=== PATIENT | female | born 1940 | race Caucasian/White ===

== ENCOUNTER → 2018-10-07 10:10 | Outpatient (CLI) | payer MEDICARE, OTHER, SELFPAY ==
--- NOTE | 2018-10-07 | DI.RAD.S_ITS ---
PROCEDURE: XR HIP W PEL IF DONE LT 2V INDICATIONS: PAIN IN LEFT HIP TECHNIQUE: AP pelvis with lateral view(s) of the left hip(s). COMPARISON: [facility], [place], ABDOMEN/PELVIS WITH CONTRAST, 07/16/2011, 11:51. FINDINGS: Bones: No fractures or dislocations. Pelvic ring appears intact. No suspicious bony lesions. There is moderate superior joint space narrowing seen of the left hip, with associated remodeling changes with subchondral sclerosis and osteophyte formation. Milder degenerative changes are seen of the contralateral right hip. Age-appropriate lower lumbar spine degenerative changes are noted. Soft tissues: The visualized bowel gas pattern is normal. No suspicious soft tissue calcifications. IMPRESSION: Moderate left hip degenerative change. Dictated by: Rafita Irwin M.D. on 10/07/2018 at 10:17 Approved by: Rafita Irwin M.D. on 10/07/2018 at 10:18
== END ==
PROVIDERS: Family Provider Internal Medicine; PCP Internal Medicine; Visit Provider Internal Medicine
DX: M25.552 Pain in left hip (principal); M16.12 Unilateral primary osteoarthritis, left hip
CPT/HCPCS: 73502

== ENCOUNTER → 2019-04-29 12:03 | Outpatient (CLI) | payer MEDICARE, OTHER, SELFPAY ==
[2019-04-29 12:47] LABS: Bacteria Urine None Seen; WBC Urine None Seen (0-5/HPF)
[2019-04-29 13:44] LABS: Hematocrit 39.9 % (36-46); Hemoglobin 13.1 g/dL (12.0-16.0); Mean Corpuscular HGB Conc 32.9 % (30-36); Mean Corpuscular Hemoglobin 30.2 PG (26-34); Mean Corpuscular Volume 91.6 fL (80-100); Platelet Count 329 X10^3/uL (150-400); Red Blood Cell Count 4.35 X10^6/uL (4.0-5.2); Red Cell Distribution Width 13.2 % (11.6-14.8); White Blood Cell Count 10.7 X10^3/uL (4.5-11.0)
[2019-04-29 14:08] LABS: BUN Creatinine Ratio 38.3 (6-22); Blood Urea Nitrogen 23 mg/dL (7-17); Calcium 10.4 mg/dL (8.4-10.2); Carbon Dioxide 27 mmol/L (22-32); Chloride 103 mmol/L (98-107); Estimated Glomerular Filt Rate > 60.0 mL/min (>60); Glucose 97 mg/dL (80-110); HEMOLYSIS < 15 (0-50); Potassium 3.8 mmol/L (3.4-5.1); Sodium 139 mmol/L (137-145)
[2019-04-29 14:16] LABS: Appearance Urine UA CLEAR; Bilirubin Urine UA NEGATIVE (NEGATIVE); Color Urine UA YELLOW; Glucose Urine UA NEGATIVE (Negative); Ketones Urine UA NEGATIVE (NEGATIVE); Leukocyte Esterase Urine UA NEGATIVE (NEGATIVE); Nitrite Urine UA NEGATIVE (Negative); Occult Blood Urine UA 1+ (Negative); Protein Urine UA NEGATIVE (Negative); Specific Gravity Urine UA <=1.005 (1.000-1.035); Urobilinogen Urine UA 0.2 E.U./dL (0.2)
[2019-04-29 14:32] LABS: RBC Urine 1-5/HPF (0-5/HPF)
[2019-04-29 14:45] LABS: Hemoglobin A1C% w Est Avg Glu 5.7 % (4.0-6.0)
== END ==
PROVIDERS: PCP Internal Medicine; Visit Provider Orthopaedic Surgery
DX: Z01.818 Encounter for other preprocedural examination (principal); N39.0 Urinary tract infection, site not specified; R73.9 Hyperglycemia, unspecified
CPT/HCPCS: 36415; 80048; 81001; 83036; 85027; 93005

== ENCOUNTER 2019-05-23 09:56 | Inpatient (IN) | payer MEDICARE, OTHER, SELFPAY ==
[2019-05-09 09:54] VITALS: BMI 22.0
[2019-05-23] VITALS (11 sets, daily range): BP systolic 105–140; BP diastolic 50–91; PULSE 63–76; RESP 15–18; TEMP 36.2–36.6; O2SAT 95–100; BMI 21.1
--- NOTE | 2019-05-23 | DI.RAD.S_ITS ---
PROCEDURE: XR HIP W PEL IF DONE LT 2V INDICATIONS: ANTERIOR HIP TECHNIQUE: 2 intraoperative fluoroscopic view(s) of the hip acquired. COMPARISON: [facility], [place], XR HIP W PEL IF DONE LT 2V, 10/07/2018, 10:20. FINDINGS: Bones: Patient is status post left hip arthroplasty, with hardware components in expected positions. The hip joint appears congruent. The visualized bony structures appear intact. Soft tissues: Overlying postoperative changes are noted. No suspicious soft tissue densities. IMPRESSION: Intraoperative fluoroscopic images shows post left total hip arthroplasty changes with anatomic left hip alignment. Dictated by: Torrey Pulido M.D. on 05/23/2019 at 16:11 Approved by: Torrey Pulido M.D. on 05/23/2019 at 16:12
--- NOTE | 2019-05-23 06:00 | DI.RAD.S_ITS ---
PROCEDURE: XR HIP W PEL IF DONE LT 2V INDICATIONS: LEFT TOTAL HIP TECHNIQUE: AP pelvis and lateral view of the left hip acquired. COMPARISON: [facility], [place], XR HIP W PEL IF DONE LT 2V, 05/23/2019, 14:30. FINDINGS: Bones: Patient is status post left hip arthroplasty, with hardware components in expected positions. The hip joint appears congruent. The visualized bony structures appear intact. Soft tissues: Overlying postoperative changes are noted. No suspicious soft tissue densities. IMPRESSION: Left hip disease is seen anatomic alignment. Dictated by: Yenny Peterson M.D. on 05/23/2019 at 17:16 Approved by: Yenny Peterson M.D. on 05/23/2019 at 17:17
[2019-05-23] MEDS: PREGABALIN 75 MG CAPSULE PO (10:41)
[2019-05-23] MEDS: ACETAMINOPHEN 325 MG TABLET 975 MG PO ×2 (10:41→20:22)
[2019-05-23] MEDS: LACTATED RINGERS 1,000 ML 42 ML IV ×2 (10:41→15:37)
[2019-05-23] MEDS: CELECOXIB 200 MG CAPSULE PO (10:41)
[2019-05-23] MEDS: VANCOMYCIN 1,000 MG/200 ML PIGGYBACK 200 MG IV (10:59)
--- NOTE | 2019-05-23 11:04 | SUR.PREOP ---
Discussed pt's status with PharmacistAllie. Verified ok to give 1G Vanco and 2G Ancef.
--- NOTE | 2019-05-23 11:46 | PM.PREOP ---
Pre-operative Note Interval Note History & Physical reviewed/Exam performed by Physician: Yes Changes to H&P: No
--- NOTE | 2019-05-23 11:47 | PM.OP.1 ---
Operative Date/Time/Diagnoses Date of procedure: 05/23/19 Time of procedure: 11:59 Pre-op diagnosis: left total hip anterior approach Post-op diagnosis: same Procedure & Clinicians Procedure: Left total hip arthroplasty anterior approach Same procedure as scheduled: Yes Indications: The patient has had progressively worsening left hip pain with radiographic changes consistent with arthritis. Non-operative management has failed and the patient has requested total hip replacement. The risks, benefits and alternatives to surgery were discussed with the patient prior to proceeding. Risks discussed included, but were not limited to, failure to relieve pain, leg length discrepancy, dislocation, stiffness, infection, nerve damage, deep venous thrombosis, pulmonary embolism, stroke, coma, heart attack, permanent paralysis and , as well as the potential need for eventual revision of the prosthetic. Surgeon: Norma Barry Paediatric Thoracic Physician: Duke Sousa Anesthesia Type: General and Spinal Operative Notes Findings: Severe left hip osteoarthritis, adequate stability, soft bone Closure Type: primary Specimen(s): none sent Prosthetic devices, grafts, tissues, transplants, or devices: [employer] R3 48 cup, size 5 standard offset anthology, one 20mm screw, -3 by 32 femoral head Estimated Blood Loss (mL): 250 Blood products transfused: none Procedure in detail: The patient was brought to the operating room. Patient was carefully positioned in the supine position. Time-out was performed and antibiotics were given. Anesthesia was induced. She was positioned in the on the table in order to allow hyperextension of the hip. The left lower extremity was prepped and draped in a standard sterile fashion. An anterior left hip incision was made 1 fingerbreadth lateral to the anterior superior iliac spine and extended distally towards the greater trochanter. Dissection was carried out through skin and subcutaneous tissues. The skin and subcutaneous tissues were carefully injected with Lidocaine with epi. Superficial hemostasis was achieved. The fascia over the tensor fascia bharti was defined and incised with a knife. Two Allis clamps were used to grasp the fascia. Tensor fascia bharti was retracted laterally. A gelpi retractor was placed. Dissection was carried out down along the neck. The circumflex vessels were carefully identified and cauterized with the Aqua Mantis. There was good visualization of the femoral neck. A Cobra was placed superior to the neck and the gluteus fibers were carefully stripped from that superior aspect of the capsule. A 2nd retractor was placed along the inferior aspect of the neck. The rectus insertion along the capsule was partially released. A 3rd retractor that was then gently placed over the rim of the acetabulum under the rectus. Capsule was carefully incised and released from the intertrochanteric line circumferentially superior to the mid sagittal line and inferiorly to the mid sagittal line until the lesser trochanter was palpable. A tag stitch was placed both in the superior and inferior limb of the capsular insertion. There was some moderate degenerative tearing of the hip abductors. Along the acetabulum capsule was also released up to the mid sagittal 12:00 position. A portion of the labrum was resected. A saw was used to perform an osteotomy at the level of the intertrochanteric line and the junction of the superior femoral neck leaving approximately 1 finger breath of residual inferior neck above the lesser trochanter. A 2nd cut was made along the femoral neck at the base of the head and a napkin ring of neck was removed. Corkscrew was placed in the femoral head and the head was removed without difficulty. Retractors were then repositioned around the acetabulum. Residual labrum was resected and additional osteophytes were removed. A reamer that was 4 mm below the templated size was placed by hand in the acetabulum and it was reamed to centralize the acetabulum. It was then reamed up to 2 under the templated size and fluoroscopy was brought in to confirm the position of the reaming and depth of reaming. I reamed 1 under the anticipated size and touched the rim with line to line reaming. A trial cup was placed and noted that it was appropriately sized and fluoroscopy confirmed position and depth. The component was open and inserted without difficulty fluoroscopic imaging was used to confirm that the cup had been adequately seated and was well positioned. She had a somewhat soft acetabulum, I bone grafted the cyst in the dome and further fixed the cup with a single 20mm screw. Neutral poly liner was placed. The cup was tested and noted to be stable. Attention was then directed to the femur. The femur was gently hyperextended additional capsular release was performed as needed in order to allow adequate visualization of the proximal femur with elevation of the femur. Patient was placed in a hyperextended slightly abducted position with maximum external rotation. Box osteotome was used to check for any residual neck as well as sclerotic bone along the trochanter. [place] pepper was placed in the femur. Additional broaching was performed. Canal finder was used to determine the alignment of the canal and position. Size 1 broach was placed. The canal was then appropriately broached up to the templated size as long as there was adequate stability of the broach and serial advancement of the broach without excessive impingement. Specific attention was directed at avoiding varus attempting to direct the distal aspect of the broach more anteriorly and avoiding excessive anteversion. Trial reduction showed acceptable range of motion, good stability, no posterior impingement, amish of leg length and appropriate lateral shuck. I also hyperflexed the hip and checked that there was no impingement anteriorly and there was good stability with flexion, abduction and internal rotation. Marcaine and Exparel were injected. The stem was placed without difficulty. Repeat trial reduction and x-ray showed acceptable overall position, length, and no evidence of the femoral fracture. Final head was placed. Wound was meticulously irrigated with normal saline. The hip was reduced and additional Exparel and Marcaine were injected. The capsule was closed with interrupted nonabsorbable sutures. The fascia of the tensor was closed with interrupted and running Vicryl. No drain was placed. Any tensor fascia bharti muscle that appeared to be contused or injured which was a minimal amount was carefully resected. Capsule around the tensor was injected with Exparel and Marcaine. The skin was closed with barbed stitches for the subcutaneous tissue and skin. We also used surgical glue. The wound was dressed sterilely. Brief Betadine soak was also used and was meticulously irrigated with normal saline. Patient was transferred to recovery room in satisfactory condition. Complications: none Post-operative Condition: stable Disposition: Acute Care Plan for aftercare: The patient will be maintained on a standard total hip replacement protocol with weight bearing as tolerated and anterior hip precautions. The patient will receive Aspirin and sequential compression devices for DVT prophylaxis. The patient will be discharged home when safe for the home environment.
[2019-05-23] MEDS: CEFAZOLIN 2 GM/100 ML FROZ.PIGGY IV ×2 (12:30→20:18)
--- NOTE | 2019-05-23 13:09 | SUR.OPER ---
Supine, head on pillow, torso on Tatum table. Gel roll under operative hip. Right arm secured on arm board <90 degrees abduction, left arm across chest and taped over the foam to the table. Both feet placed and secured in boots by a surgeon and PA.
[2019-05-23] MEDS: BUPIVACAINE 0.25% W/ EPI 30 ML VIAL 60 ML INJ (13:16)
[2019-05-23] MEDS: TRANEXAMIC ACID 1,000 MG VIAL 1000 MG INJ ×2 (13:16→14:22)
[2019-05-23] MEDS: BUPIVACAINE LIPOSOME 266 MG/20 ML VIAL INJ (13:16)
[2019-05-23] MEDS: SODIUM CHLORIDE IRRIG SOLUTION 250 ML, POVIDONE-IODINE SPONGE STICKS 1 APPLIC IRR (13:18)
--- NOTE | 2019-05-23 18:08 | PC.NURSE ---
Post-op Notes: Patient brought to rm 211 from PACU via hospital bed. Deyanira is awake, Ox3, conversive with staff. Denies pain, does report numbness to bilateral legs, able to wiggle toes and move feet but unable to feel nurse hand on foot or leg. Aquacel drsg to left anterior hip is CDI. Pedal pulses present, wearing bilateral SCDs. VS are stable, RA oxygen high 90's with continuous pulse ox in place. Tolerating liquids, diet advanced to general. Visiting with family at bedside. Fall precautions in place, pt instructed to call nurse for any needs/concerns, oriented to nurse call button.
[2019-05-23] MEDS: LACTATED RINGERS 1,000 ML 125 ML IV ×2 (20:14→22:15)
[2019-05-23] MEDS: ASPIRIN EC 81 MG TABLET PO (20:18)
[2019-05-23] MEDS: IBUPROFEN 600 MG TABLET PO (20:18)
[2019-05-23] MEDS: DOCUSATE 100 MG CAPSULE PO (20:19)
[2019-05-23] MEDS: BRIMONIDINE/TIMOLOL 0.2%/0.5% OPHTH 5 ML 1 DROPS EYE-BOTH (20:21)
[2019-05-23] MEDS: ATORVASTATIN 10 MG TABLET PO (20:21)
[2019-05-24 00:35] VITALS: BP 92/58; PULSE 66; RESP 15; TEMP 36.4; O2SAT 96
[2019-05-24] MEDS: CEFAZOLIN 2 GM/100 ML FROZ.PIGGY IV (04:09)
[2019-05-24 05:39] LABS: Hematocrit 30.8 % (36-46); Hemoglobin 10.3 g/dL (12.0-16.0)
[2019-05-24 07:58] VITALS: BP 99/69; PULSE 56; RESP 14; TEMP 37; O2SAT 100
[2019-05-24] MEDS: ACETAMINOPHEN 325 MG TABLET 975 MG PO (08:30)
[2019-05-24] MEDS: CHOLECALCIFEROL (VITAMIN D3) 1,000 UNIT TABLET 2000 UNIT PO (08:31)
[2019-05-24] MEDS: MULTIVITAMIN 1 TABLET 1 TAB PO (08:31)
[2019-05-24] MEDS: IBUPROFEN 600 MG TABLET PO (08:31)
[2019-05-24] MEDS: ASPIRIN EC 81 MG TABLET PO (08:31)
--- NOTE | 2019-05-24 08:41 | CM.DANOTE ---
Addendum entered by Angi Cook LPN 05/24/19 11:32: Pt did leave for home today as per plan Addendum entered by Angi Cook LPN 05/24/19 10:13: Pt did very well with PT and for a home setting. Daughter Zari will stay with pt for at least 6 weeks. P: home when stable for same.. will follow prn. Original Note: Discharge Planning/Care Management DCP: assessment: case received, EMR reviewed and met with pt. Introduced self and role. Pt is a 78 year old female who admitted yesterday for a planned L TERRELL. Surgeon: Dr. Fransico Barry Payer: Medicare and [employer]. PCP: Marlen Evans Pt was just starting her session with PT Edgardo. She confirms her daughter Zari who is staying in room with her (currently out for breakfast) will be assisting her in her recovery when she leaves the hospital. P: will be checking in as POC unfolds to assist with any d/c needs that may arise. Anticipate Zari will be involved in caregiver training sessions with PT and pt. Advanced directive, confirm from FAMILY Start: 05/23/19 17:02 Freq: Q24H Status: Active Protocol: Document 05/23/19 17:02 KMD (Rec: 05/23/19 17:05 KMD [id number]) Advance Directive, confirm on record Time 17:05 Person contacted Patient and daughter Copy received No CM Discharge Assessment Start: 05/24/19 08:40 Freq: Status: Active Protocol: Document 05/24/19 08:40 ITV (Rec: 05/24/19 08:41 ITV [id number]) Discharge Planning Assessment Advance Directives? Yes Advance Directives on File No History Provided By Patient,Medical Record Prior Living Arrangements House Household Members none Is patient alert and oriented? Yes Whiteboard Updated in Patient Room with Yes name and ext. # of Certified Orthotist Practice Manager Review Status In Process Pre-Anesthesia Assessment Start: 05/09/19 09:54 Freq: Status: Active Protocol: Document 05/09/19 09:54 CAB (Rec: 05/09/19 11:04 CAB [id number]) Pre-Anesthesia Assessment PAC Comment Reviewed pre-op EKG w/2017 EKG , NM stress 2017 w/Dr. Ramsay. Pt denies any current CP, SOB, lightheadedness, dizziness. She is active and able to exercise without any symptoms other than pain r/t hip Patient Information Reviewed Via Phone Assessment Assessment Completed With Patient Diagnostic Results BMP/CMP,CBC,EKG,Urinalysis Comment Labs/EKG @ 04/29/19. Prior EKG scanned in. Outside UA scanned in Primary Care Provider Marlen Evans Seen Specialist in Last 12 Months Yes Specialist Seen Field Consultant,Orthopedist Comment PCP visit 02/07/19 scanned to record Primary Language [place] Tortilla Maker Required No Height 149.86 cm Weight 49.442 kg Body Mass Index (BMI) 22.0 Hearing Ability Normal Visual Assist Glasses,Magnifying Glass Dentition Type Teeth, Natural Present Barriers to Learning None Hx Anesthesia Reactions No Hx Family Anesthesia Reaction No Hx Malignant Hyperthermia No Hx Blood Transfusions No Anesthesia Review Requested No alcohol intake never Smoking Status Never smoker Substance Use Type does not use Pain Present Pain Reported Musculoskeletal Symptoms Abnormal Gait,Difficulty Walking,Joint Pain,Limited Range of Motion History of Falling (Recent or History of No ) Patient is completely paralyzed or No completely immobile Prosthesis or Orthotic Device Cane Mental Status Oriented to own ability Is patient on oxygen? No Does patient have PETTY/SOB No Hx Sleep Apnea No Currently Taking a Beta Shea No Can You Climb a Flight of Stairs Without Yes SOB Hx Chest Pain Yes: Work-up [facility] 2018 Hx SOB No Hx Syncope or Dizziness No Anti-Coagulant Therapy No Has a Seasoner Yes: Work-up [facility] 2018 Cardiac Testing Yes: NM stress 09/23/17 @ [facility] Hx Pacemaker/ICD No Pacemaker Rep Required? No Cardiac Clearance Received Not Applicable Comment Cardiac records scanned to chart Diet Type At Home Regular dysphagia No Bladder Pattern Incontinent Urinary Catheter Present No Hx Urinary Self Catheterization No Diabetes No HgbA1C 5.7 Date 04/29/19 Patient No Lactating No Hx Drug Resistant Organism No Presence of External or Internal Medical No Devices Have you traveled outside the [place] in the last 30 days? Marital Status / Lives With none Prior Living Arrangements House Number of Floors (Floors) One Floor Support System Child/Children Patient Discharge Plan Description Return Home Comment Daughter flying in to assist w /care @ [place]. Advised overnight length of stay Feels Safe in Current Environment Yes Been Physically Hurt or Threatened By a No Person in Current Environment Do you have thoughts of harming yourself None or others? Are you currently considering suicide? No Do you have a plan to hurt yourself or No Plan others? Do You Have Any Spiritual Beliefs That No May Affect Your HC Choices? Do You Have Any Cultural Practices That No May Affect Your HC Choices? Who Can We Speak to About Patient's Care Family, friends Identifying Code for Release of Patient Declines to issue Information Health Care Proxy/Next of Kin Zari (daughter) Health Care Proxy Emergency Contact Name Zari (daughter) Emergency Contact Advance Directives? Yes Advance Directives on File No Requested Patient Bring Advanced Yes Directives DOS PAC Instructions Do not shave/clip surgical site,Durable medical equipment ,Medications to take/avoid, Nasal antibiotic,No ETOH/ petroleum product on skin DOS, NPO,Post-op transportation,Pre -surgical wash,Sturdy shoes/ comfortable clothes,Do not bring valuables and remove jewelry
--- NOTE | 2019-05-24 09:46 | PT.IIE ---
Current Diagnoses Unilateral primary osteoarthritis, left hip (05/23/19) Pain in left hip (05/23/19) Surgery Performed Operation Date: 05/23/19 12:15 Actual Procedures p Total Hip Arthroplasty/Anterior Approach(Left) - Norma Barry MD Surgical History (Last Updated 05/09/19 @ 10:12 by Elba Chaudhari RN) Hx of bilateral cataract extraction (Acute) Hx of hernia repair (Acute) Hx of right breast biopsy (Acute) Hx of tonsillectomy (Acute) Medical History (Last Updated 05/09/19 @ 10:12 by Elba Chaudhari RN) HLD (hyperlipidemia) (Acute) Osteoarthritis (Acute) Skin cancer of nose (Acute) Physical Therapy Inpatient Evaluation/Re-Eval M1 PT/OT-IP Prior Functional Status Start: 05/24/19 08:14 Freq: NEEDED Status: Active Protocol: Document 05/24/19 08:30 HH (Rec: 05/24/19 09:46 [id number]) Medical Review Prior Functional Status Medical History Reviewed Yes Diet/Fluid Consistency Regular Communication no deficits noted. Mobility and Gait Pt was independent with mboility at home and community without AD Activities of Daily Living and IADL's Independent with ADls and IADLs. She also drives. Social History Household Members none Living Arrangements House Number of Floors (Floors) One Floor Number of Stairs To Enter/Railing? 3 DANIELLA to front entrance Pt uses entrace from garage at all times with 4 descending STEs with B rails. 8 steps with B rails to basement for laundry. Home Environment Standard Height Toilet Home Equipment Front Wheel Walker,Straight Cane,Raised Toilet Seat Without Armrests,Grab Bars In Shower Employment Status Retired Additional Social History Comment Pt lives alone in [place]. Pt's Dtr Shoshana from [place] will stay with her 08/03 for 6 weeks or more to assist pt. Pt will attend outpt PT at [facility] at [place]. M2 PT-IP Current Condition Start: 05/24/19 08:14 Freq: NEEDED Status: Active Protocol: Document 05/24/19 08:30 HH (Rec: 05/24/19 09:46 [email or web address]) Physical Therapy Current Condition Current Condition Evaluation Date 05/24/19 Treatment Diagnosis L TERRELL (Ant approach), difficulty in walking Onset Date 05/23/19 Precautions Anterior Hip Precautions No Hip Extension,No Hip External Rotation Weight Bearing Status Weight Bearing Status Weight Bear as Tolerated M3 PT-IP Subjective Start: 05/24/19 08:14 Freq: NEEDED Status: Active Protocol: Document 05/24/19 08:30 (Rec: 05/24/19 09:46 [id number]) Subjective Physical Therapy Visit Type Type Initial Evaluation Visit Start Time 08:30 Visit Stop Time 09:00 Total Visit Minutes 30 Notes pt's dtr Shoshaan attended session Number of SECURITY TESTER Visits 0 Physical Therapy Visit Comments Patient Comments I feel great today and i have been going to bathroom with FWW 3 times already. Patient Goals To return home with dtr. Therapy Pain Assessment Pain When Pain Assessed During Mobility Pain Present Pain Present Pain Reported Location L hip Intensity 2 Scale Used Numeric (1 - 10) Description Acute Pain Management Techniques Apply Cold,Elevation, Modification of Treatment,Re- positioning,Timing of Activity with Medications M4 PT-IP Mobility and Gait Start: 05/24/19 08:14 Freq: NEEDED Status: Active Protocol: Document 05/24/19 08:30 (Rec: 05/24/19 09:46 [email or web address]) PT-Bed Mobility Assessment Supine to Sit Supine to Sit Standby Assistance Scooting Scooting to Edge of Bed Independent Scooting Up and Down in Bed Independent PT-Transfer Assessment Sit to and From Stand Sit to and from Stand Standby Assistance,Use of Upper Extremities Equipment Transfer Assistive Device Gait Belt,Front Wheeled Walker Orthotic/Prosthetic Devices or Brace: No Transfers Transfer Destination Bed,Chair Transfer Technique Stand Step Pivot Transfer Ability Level of Assist Standby Assistance,Use of Upper Extremities Comments Mobility Comments Pt in supine upon assessment. She was able to pivot her LLE to scoot towards EOB on R side with SBA. Overall able to transfer with SBA/ independently with proper hand placements. Denies any discomfort / signs of LOB. Gait Assessment Gait Gait Assistance Required: Standby Assistance Distance (Feet) 250 Able to Maintain Weight Bearing Status Yes During Gait Assistive Devices Assistive Device Gait Belt,Front Wheeled Walker Orthotic/Prosthetic Devices or Brace: No Gait Deviations General Gait Pattern Antalgic,Decreased Stride Length,Decreased Feet Clearance,Step-to Gait Factors Limiting Gait Function Factors Limiting Gait Function Decreased Activity Tolerance, Decreased Strength,Limited Range of Motion,Pain Comments Gait Comments Pt amb from EOB to hallway and returned to chair with SBA and FWW. Pt initially used step to gait for 50 feet but able to transition to step over gait for the remaining distance. She was able to fully WB on LLE. Pt demonstrates good understanding of her precautions without excessive extend her L hip and ER. Stair Climbing Assessment Evaluation Level of Assist On Stairs Standby Assistance Devices Stair Climbing Assistive Devices Left Railing,Right Railing Technique/Endurance Stair Climbing Direction Ascend and Descend Stair Climbing Technique Step to Step Number of Steps Climbed 3 Query Text: Stair Climbing Set # Repetitions (reps) 2 PT-Balance Assessment Sitting Balance and Reactions Static Sitting Balance Ability Normal Dynamic Sitting Balance Ability Normal Standing Balance and Reactions Static Standing Balance Ability Normal Dynamic Standing Balance Ability Normal Device Used FWW M5 PT-IP Objective Assessments Start: 05/24/19 08:14 Freq: NEEDED Status: Active Protocol: Document 05/24/19 08:30 (Rec: 05/24/19 09:46 [email or web address]) Orientation Orientation/Cognition Level of Alertness Alert Orientation Name,Age,Birthday,Month,Date, Year,Day of Week,Place, Situation Language Function Ability No Deficits Noted Safety Awareness Understands Safety Issues Memory Description No Deficits Noted Gross Range of Motion Upper Extremity ROM Assessment Within Functional Limits Lower Extremity ROM Assessment Within Functional Limits Strength Upper Extremity Strength Assessment Within Functional Limits Lower Extremity Strength Assessment Left Impaired Hip 4-/5 Sensation Assessment Sensation Gross Sensation WNL Muscle Tone Muscle Tone WNL Yes M6 PT-IP Treatment Start: 05/24/19 08:14 Freq: NEEDED Status: Active Protocol: Document 05/24/19 08:30 HH (Rec: 05/24/19 09:46 [email or web address]) Physical Therapy Treatment Exercises Exercises Ankle Pumps,Gluteal Sets,Quad Sets Education Education Provided Precautions,Weight Bearing Status,Post-Op Packet,Safety M7 PT-IP Assessment and Plan Start: 05/24/19 08:14 Freq: NEEDED Status: Active Protocol: Document 05/24/19 08:30 (Rec: 05/24/19 09:46 [email or web address]) PT Summary Assessment and Plan Potential Rehabilitation Potential Excellent Status of Condition at Evaluation Stable Summary Impairments Pain,ROM,Strength,Bed Mobility ,Transfers,Gait,Activity Tolerance Progress Towards Goals Safe For Discharge Assessment Summary Pt is a low complexity with s/ p L TERRELL (ant approach) yesterday. Pt did very well with PT and able to perform bed mobility, transfers, gait training, stair climbing with SBA/ mod independently with FWW. Pt and her dtr are very attentive and have good understanding of post op precautions. Pt's dtr Shoshana will stay with pt 24/7 for at least 6 weeks. Pt is safe to go home at this point with outpatient PT to improve mobility and strength. Frequency of Treatment Frequency Of Treatment Discharge Recommendations To Nursing Amount of Assist Needed Standby Assistance Discharge Recommendations PT Discharge Recommendations Home with 24/7 Assist, Outpatient PT
[2019-05-24] MEDS: INFLUENZA VACCINE 0.5 ML SYRINGE IM (10:04)
--- NOTE | 2019-05-24 10:38 | PM.DS.1 ---
History of Present Illness History of Present Illness Date Patient Seen: 05/24/19 Chief complaint: 11099 Left Total Hip Arthroplasty Discharge Providers Provider Date of admission: 05/23/19 09:56 Discharge Date: 05/24/19 Primary care physician: Marlen Evans MD Consults: 05/23/19 06:00 Consult to Anesthesiology Routine Comment: Consulting Provider: Anesthesiologist Reason for consultation: Regional block for post operative pain control 05/23/19 17:59 Consult to Discharge Planning Routine Comment: Consult to Physical Therapy Evaluate & Treat Comment: Physician Instructions: post op TERRELL protocol Consult to Respiratory Therapy Evaluate & Treat Comment: Physician Instructions: Evaluate and treat Discharge provider: Consuelo Mancia PA-C Summary Hospital Course Discharge Diagnosis: s/p Left anterior total hip arthroplasty Hospital Course: Deyanira is a 78 year old female who has had progressively worsening left hip pain with radiographic changes consistent with arthritis. Non-operative management has failed and the patient has requested total hip replacement. The risks, benefits and alternatives to surgery were discussed with the patient prior to proceeding. Risks discussed included, but were not limited to, failure to relieve pain, leg length discrepancy, dislocation, stiffness, infection, nerve damage, deep venous thrombosis, pulmonary embolism, stroke, coma, heart attack, permanent paralysis and , as well as the potential need for eventual revision of the prosthetic. After informed consent was obtained patient was taken to the operating room where she underwent a right anterior total hip arthroplasty with Dr. Barry which she tolerated well without complications. She was then taken to the acute care stafford where she has been progressing well post operatively. Vitals have been stable. She has mobilized with PT and completed stair training. Her pain has been well controlled with Tylenol. ASA 81mg is being utilized for DVT prophylaxis. Her daughter is present as combination saw operator. She will be discharged with supply of Oxycodone for severe pain. She is medically stable for discharge to home. Status at Discharge Cognitive/behavioral status at discharge: oriented Functional status at discharge: uses cane/walker Overall status at discharge: patient is progressing back to baseline Exam Vital Signs (past 8 hours): - 05/24/19 07:58 Temperature 98.6 F Pulse Rate 56 L Respiratory Rate 14 Blood Pressure 99/69 Pulse Oximetry 100 Oxygen Delivery Method Room Air Oxygen Flow Rate 0 Narrative Exam Narrative: 78 year old female resting comfortably in chair. Alert and oriented. Aquacel dressing in place over right anterior hip is CDI. Patient able to flex/extend the knee and foot. Palpable pedal pulse. Soft, compressible calves. Objective Labs Result Diagrams: 05/24/19 05:17 Labs: Laboratory Results - last 24 hr 05/24/19 05:17 Hgb 10.3 L Hct 30.8 L Discharge Plan Discharge Plan Patient Disposition: Home Discharge Med Rec/Prescriptions Prescriptions: New acetaminophen 325 mg Tablet 975 mg PO TID Qty: 40 RF: 0 aspirin 81 mg Tablet,Delayed Release (Dr/Ec) 81 mg PO BID Qty: 40 RF: 0 docusate sodium [DOK] 100 mg Capsule 100 mg PO BID Qty: 40 RF: 0 oxycodone 5 mg Tablet 5 mg PO Q4-6H PRN (Reason: Pain, Moderate (4-6)) Qty: 40 RF: 0 Continued multivitamin Capsule 1 cap PO DAILY Qty: 0 RF: 0 cholecalciferol (vitamin D3) [Vitamin D3] 2,000 unit Capsule 2,000 unit PO DAILY Qty: 0 RF: 0 atorvastatin 10 mg Tablet 10 mg PO BEDTIME RF: 0 Combigan 0.2-0.5 % Drops 1 drp EYE-BOTH BEDTIME RF: 0 ibuprofen 200 mg Capsule 400 - 600 mg PO DAILY PRN (Reason: Pain) RF: 0 Follow up/Referrals: Norma Barry MD [Physician] - Provider Discharge Instructions Diet: Diet as Tolerated Activity: Weight bear as tolerated. Anterior hip precautions. Cold/Heat Therapy: Ice packs as needed. Other treatments: Please refer to [facility] guide. Skin/Wound/Dressing Care Report to your healthcare provider any signs of infection, such as:: chills, fever, night sweats, unusual drainage and unusual redness Dressing: Dressing will remain in place, if this becomes saturated please call the office. Visit Report/Discharge Packet Instructions: Influenza Vaccine, DI for Hip Replacement Discharge Data Primary Care Provider: Marlen Evans VTE Deep Vein Thrombosis/Pulmonary Embolism Present on Admission: No
== END 2019-05-24 10:35 | disposition home or self-care (01) | DRG 470 ==
PROVIDERS: Admitting Provider Orthopaedic Surgery; PCP Internal Medicine; Visit Provider Orthopaedic Surgery
PROC: 0SRB02Z Replacement of Left Hip Joint with Metal on Polyethylene Synthetic Substitute, Open Approach (ICD-10-PCS; CPT 27130; principal; 2019-05-23 12:15)
DX: M16.12 Unilateral primary osteoarthritis, left hip (principal); E78.5 Hyperlipidemia, unspecified
CPT/HCPCS: 36415; 73502; 76000; 85014; 85018; 90471; 90656; 94760; 97116; 97161; C1776; C9290; J0690; J1100; J2250; J2405; J2704; J3010; Q2038

== ENCOUNTER → 2019-06-29 15:50 | Outpatient (ROUT) | payer MEDICARE, OTHER, SELFPAY ==
[2019-05-23 16:58] VITALS: BMI 21.1
[2019-06-29 16:12] LABS: Add Manual Diff / Slide Review NO; Basophils Absolute Auto 100 /uL (0-100); Basophils Percent Auto 0.6 % (0-2); Eosinophils Absolute Auto 200 /uL (0-450); Eosinophils Percent Auto 1.9 % (2-4); Hematocrit 35.3 % (36-46); Hemoglobin 11.4 g/dL (12.0-16.0); Lymphocytes Absolute Auto 2900 /uL (1100-4500); Lymphocytes Percent Auto 23.9 % (25-40); Mean Corpuscular HGB Conc 32.3 % (30-36); Mean Corpuscular Hemoglobin 29.1 PG (26-34); Mean Corpuscular Volume 90.3 fL (80-100); Monocytes Absolute Auto 900 /uL (0-900); Monocytes Percent Auto 7.6 % (3-14); Neutrophils Absolute Auto 8000 /uL (1500-7000); Platelet Count 414 X10^3/uL (150-400); Red Blood Cell Count 3.91 X10^6/uL (4.0-5.2); Red Cell Distribution Width 14.2 % (11.6-14.8); White Blood Cell Count 12.1 X10^3/uL (4.5-11.0)
[2019-06-29 16:34] LABS: Alanine Aminotransferase 21 IU/L (<35); Aspartate Aminotransferase 36 IU/L (14-36); Cholesterol 165 mg/dL (140-199); HDL Cholesterol 71 mg/dL (40-60); LDL Cholesterol Calculated 79 mg/dL (<100); Triglycerides 74 mg/dL (35-150)
== END ==
PROVIDERS: PCP Internal Medicine; Visit Provider Internal Medicine
DX: E78.5 Hyperlipidemia, unspecified (principal); D50.9 Iron deficiency anemia, unspecified
CPT/HCPCS: 80061; 84450; 84460; 85025

== ENCOUNTER → 2019-07-21 08:48 | Outpatient (CLI) | payer MEDICARE, OTHER, SELFPAY ==
[2019-05-23 16:58] VITALS: BMI 21.1
--- NOTE | 2019-07-21 | DI.US.S_ITS ---
PROCEDURE: US ABDOMEN COMPLETE INDICATIONS: EPIGASTRIC PAIN TECHNIQUE: Real-time scanning was performed of the abdominal and retroperitoneal organs, with image documentation. COMPARISON: None. FINDINGS: Liver: Liver is normal in size and homogeneous in echotexture. Gallbladder: No gallstones identified. Normal gallbladder wall. No pericholecystic fluid. Negative sonographic Sanabria sign. Biliary ducts: Intrahepatic bile ducts are non-dilated. Extrahepatic bile duct caliber measures 6.0 mm. Normal is 6-7 mm or less in diameter, or 10 mm or less post-cholecystectomy. Pancreas: Visualized portions of the pancreas are sonographically normal. Spleen: Spleen is normal in size and homogeneous in echotexture. Kidneys: Kidneys are normal in size and echotexture. Right kidney measures 9.7 cm long; left kidney measures 9.7 cm long. No hydronephrosis or nephrolithiasis. No solid masses. Bilateral renal cysts, 2 of which are mildly complex involving the inferior pole of the right and left kidney measuring 2.4 x 2.1 x 2.0 cm and 1.2 x 1.2 x 1.0 cm respectively. Aorta: Visualized aorta is normal in caliber at less than 3 cm. Iliacs: Proximal common iliac arteries are normal in caliber at less than 2.5 cm. IVC: Intrahepatic inferior vena cava is patent. Miscellaneous: No free abdominal fluid. IMPRESSION: 1. No source for epigastric pain identified. 2. Mildly complex (Bosniak 2F)bilateral renal cysts. Followup ultrasound recommended in 6 months. Dictated by: Anibal KENNY Interpreted: Annabel Ray MD on 07/21/2019 at 10:05 Approved by: Annabel Ray M.D. on 07/21/2019 at 14:57
[2019-07-21 11:08] LABS: Add Manual Diff / Slide Review NO; Basophils Absolute Auto 100 /uL (0-100); Eosinophils Absolute Auto 200 /uL (0-450); Eosinophils Percent Auto 2.4 % (2-4); Hematocrit 37.7 % (36-46); Hemoglobin 12.3 g/dL (12.0-16.0); Lymphocytes Absolute Auto 2400 /uL (1100-4500); Lymphocytes Percent Auto 26.5 % (25-40); Mean Corpuscular HGB Conc 32.5 % (30-36); Mean Corpuscular Hemoglobin 28.9 PG (26-34); Monocytes Absolute Auto 700 /uL (0-900); Monocytes Percent Auto 7.9 % (3-14); Neutrophils Absolute Auto 5600 /uL (1500-7000); Neutrophils Percent Auto 62.2 % (50-75); Platelet Count 314 X10^3/uL (150-400); Red Blood Cell Count 4.24 X10^6/uL (4.0-5.2); Red Cell Distribution Width 14.1 % (11.6-14.8); White Blood Cell Count 9.1 X10^3/uL (4.5-11.0)
[2019-07-21 11:53] LABS: Alanine Aminotransferase 24 IU/L (<35); Alkaline Phosphatase 104 U/L (38-126); Aspartate Aminotransferase 35 IU/L (14-36); BUN Creatinine Ratio 27.5 (6-22); Bilirubin Total 0.5 mg/dL (0.2-1.3); Blood Urea Nitrogen 22 mg/dL (7-17); Calcium 10.4 mg/dL (8.4-10.2); Carbon Dioxide 26 mmol/L (22-32); Chloride 106 mmol/L (98-107); Estimated Glomerular Filt Rate > 60.0 mL/min (>60); Glucose 96 mg/dL (80-110); HEMOLYSIS < 15 (0-50); Lipase 118 U/L (23-300); Sodium 142 mmol/L (137-145)
[2019-07-21 11:54] LABS: Potassium 5.4 mmol/L (3.4-5.1)
== END ==
PROVIDERS: Family Provider Internal Medicine; PCP Internal Medicine; Visit Provider Internal Medicine
DX: R10.13 Epigastric pain (principal); N28.1 Cyst of kidney, acquired
CPT/HCPCS: 36415; 76700; 80048; 82247; 83690; 84075; 84450; 84460; 85025

== ENCOUNTER → 2019-10-18 13:18 | Outpatient (CLI) | payer MEDICARE, OTHER, SELFPAY ==
[2019-05-23 16:58] VITALS: BMI 21.1
== END ==
PROVIDERS: Family Provider Internal Medicine; PCP Internal Medicine; Referring Provider Internal Medicine; Visit Provider Internal Medicine
DX: M81.0 Age-related osteoporosis without current pathological fracture (principal); Z78.0 Asymptomatic menopausal state; Z87.891 Personal history of nicotine dependence
CPT/HCPCS: 77080; 77081

== ENCOUNTER → 2020-06-19 18:39 | Outpatient (ROUT) | payer MEDICARE, OTHER, SELFPAY ==
[2019-05-23 16:58] VITALS: BMI 21.1
== END ==
PROVIDERS: Family Provider Internal Medicine; PCP Internal Medicine; Visit Provider Internal Medicine
DX: R53.82 Chronic fatigue, unspecified (principal)
CPT/HCPCS: 81001; 87086

== ENCOUNTER → 2020-08-02 10:23 | Outpatient (CLI) | payer MEDICARE, OTHER, SELFPAY ==
[2019-05-23 16:58] VITALS: BMI 21.1
--- NOTE | 2020-08-02 | DI.US.S_ITS ---
PROCEDURE: US RENAL COMPLETE INDICATIONS: Cyst of kidney, acquired TECHNIQUE: Real-time scanning was performed of the kidneys and bladder, with image documentation. COMPARISON: CT, ABDOMEN/PELVIS WITH CONTRAST, 07/16/2011, 11:51. [facility], US, US ABDOMEN COMPLETE, 07/21/2019, 9:30. FINDINGS: Kidneys: Kidneys are normal in size. Right kidney measures 9.4 cm long; left kidney measures 9.5 cm long. Right renal cortical thickness is 1.0 cm; left renal cortical thickness is 1.6 cm. Renal cortical echotexture is normal. No hydronephrosis or nephrolithiasis. No suspicious solid mass lesions. Note is made of a superior 1.3 cm cyst and an inferior 1.6 cm cyst at the right kidney. At the upper left kidney there is a 2.1 cm cyst and a 2.0 cm cyst at the lower 3rd of the left kidney. The cysts are minimally complex with several low level internal echoes and slight irregularity of the cyst margins stable over time considering differences in technique. Bladder: Pre-void bladder volume is 433 mL. Post-void residual is 110 mL. Pre-void images demonstrate no intraluminal masses or stones. On pre-void images, right but not the left ureteral jets are noted with color Doppler interrogation. (Of note, ureteral jets may not be detectable in up to 25% of cases due to insufficient differences in specific gravity between ureteral and bladder urine). Miscellaneous: No free pelvic fluid. IMPRESSION: No evidence of solid mass lesion. Minimally complex bilateral cysts, no follow-up recommended. 110 cc postvoid bladder volume residual. Dictated by: Jaime Ram M.D. on 08/02/2020 at 13:22 Approved by: Jaime Ram M.D. on 08/02/2020 at 13:27
== END ==
PROVIDERS: Family Provider Internal Medicine; PCP Internal Medicine; Referring Provider Internal Medicine; Visit Provider Internal Medicine
DX: N28.1 Cyst of kidney, acquired (principal)
CPT/HCPCS: 76770

== ENCOUNTER → 2020-08-21 15:09 | Outpatient (ROUT) | payer MEDICARE, OTHER, SELFPAY ==
[2019-05-23 16:58] VITALS: BMI 21.1
[2020-08-21 15:27] LABS: Add Manual Diff / Slide Review NO; Basophils Absolute Auto 100 /uL (0-100); Basophils Percent Auto 0.6 % (0-2); Eosinophils Absolute Auto 300 /uL (0-450); Eosinophils Percent Auto 2.6 % (2-4); Hematocrit 38.9 % (36-46); Hemoglobin 12.8 g/dL (12.0-16.0); Lymphocytes Absolute Auto 2900 /uL (1100-4500); Lymphocytes Percent Auto 29.5 % (25-40); Mean Corpuscular Hemoglobin 30.5 PG (26-34); Mean Corpuscular Volume 92.2 fL (80-100); Monocytes Absolute Auto 800 /uL (0-900); Monocytes Percent Auto 8.1 % (3-14); Neutrophils Absolute Auto 5900 /uL (1500-7000); Neutrophils Percent Auto 59.2 % (50-75); Platelet Count 312 X10^3/uL (150-400); Red Blood Cell Count 4.22 X10^6/uL (4.0-5.2); Red Cell Distribution Width 13.2 % (11.6-14.8)
== END ==
PROVIDERS: Family Provider Internal Medicine; PCP Internal Medicine; Visit Provider Internal Medicine
DX: D72.829 Elevated white blood cell count, unspecified (principal)
CPT/HCPCS: 85025

== ENCOUNTER → 2022-01-26 09:39 | Outpatient (CLI) | payer MEDICARE, OTHER, SELFPAY ==
[2019-05-23 16:58] VITALS: BMI 21.1
[2022-01-26 10:22] LABS: COVID19 -Nasal RAPID Negative (Negative)
== END ==
PROVIDERS: Family Provider Internal Medicine; PCP Internal Medicine; Referring Provider Orthopaedic Surgery; Visit Provider Orthopaedic Surgery
DX: Z20.822 Contact with and (suspected) exposure to COVID-19 (principal)
CPT/HCPCS: 87635; C9803

== ENCOUNTER 2022-01-27 05:28 | Day surgery (SDC) | payer MEDICARE, OTHER, SELFPAY ==
[2019-05-23 16:58] VITALS: BMI 21.1
[2022-01-21 14:28] VITALS: BMI 21.4
[2022-01-27] VITALS (16 sets, daily range): BP systolic 99–135; BP diastolic 53–78; PULSE 62–76; RESP 10–17; TEMP 35.7–37.3; O2SAT 95–100; BMI 21.4
[2022-01-27] MEDS: CELECOXIB 200 MG CAPSULE PO (07:01)
[2022-01-27] MEDS: ACETAMINOPHEN 325 MG TABLET 975 MG PO (07:02)
[2022-01-27] MEDS: PREGABALIN 75 MG CAPSULE PO (07:02)
[2022-01-27] MEDS: LACTATED RINGERS 1,000 ML 84 ML IV ×2 (07:22→09:53)
[2022-01-27] MEDS: VANCOMYCIN 1,000 MG/200 ML PIGGYBACK 200 MG IV (07:23)
--- NOTE | 2022-01-27 07:39 | PM.PREOP ---
Pre-operative Note COVID-19 COVID-19 status: Negative Interval Note History & Physical reviewed/Exam performed by Physician: Yes Changes to H&P: No
--- NOTE | 2022-01-27 07:40 | P.OP_ITS ---
Operative Date/Time/Diagnoses Date of procedure: 01/27/22 Time of procedure: 07:55 Pre-op diagnosis: Left hip osteoarthritis Post-op diagnosis: same Procedure & Clinicians Procedure: Left total hip arthroplasty anterior approach Same procedure as scheduled: Yes Indications: The patient has had progressively worsening left hip pain with radiographic changes consistent with arthritis. Non-operative management has failed and the patient has requested total hip replacement. The risks, benefits and alternatives to surgery were discussed with the patient prior to proceeding. Risks discussed included, but were not limited to, failure to relieve pain, leg length discrepancy, dislocation, stiffness, infection, nerve damage, deep venous thrombosis, pulmonary embolism, stroke, coma, heart attack, permanent paralysis and , as well as the potential need for eventual revision of the prosthetic. Surgeon: Norma Barry President [employer]: Mariaa Meyer Anesthesia Type: Spinal and Sedation Operative Notes Closure Type: primary Specimen(s): none sent Prosthetic devices, grafts, tissues, transplants, or devices: Barry and nephew standard anthology size 5, 48 mm R3 cup, neutral 32 poly liner, 32 x -3 Oxinium femoral head,two 6.5 mm screws Estimated Blood Loss (mL): 250 Blood products transfused: none Procedure in detail: The patient was brought to the operating room. Patient was carefully positioned in the supine position. Time-out was performed and antibiotics were given. Anesthesia was induced. She was positioned in the on the table in order to allow hyperextension of the hip. The right lower extremity was prepped and draped in a standard sterile fashion. An anterior right hip incision was made 1 fingerbreadth lateral to the anterior superior iliac spine and extended distally towards the greater trochanter. Dissection was carried out through skin and subcutaneous tissues. The skin and subcutaneous tissues were carefully injected with Lidocaine with epi. Superficial hemostasis was achieved. The fascia over the tensor fascia bharti was defined and incised with a knife. Two Allis clamps were used to grasp the fascia. Tensor fascia bharti was retracted laterally. A gelpi retractor was placed. Dissection was carried out down along the neck. The circumflex vessels were carefully identified and cauterized with the Aqua Mantis. There was good visualization of the femoral neck. A Cobra was placed superior to the neck and the gluteus fibers were carefully stripped from that superior aspect of the capsule. A 2nd retractor was placed along the inferior aspect of the neck. The rectus insertion along the capsule was partially released. A 3rd retractor that was then gently placed over the rim of the acetabulum under the rectus. Capsule was carefully incised and released from the intertrochanteric line circumferentially superior to the mid sagittal line and inferiorly to the mid sagittal line until the lesser trochanter was palpable. A tag stitch was placed both in the superior and inferior limb of the capsular insertion. Along the acetabulum capsule was also released up to the mid sagittal 12:00 position. A portion of the labrum was resected. A saw was used to perform an osteotomy at the level of the intertrochanteric line and the junction of the superior femoral neck leaving approximately 1 finger breath of residual inferior neck above the lesser trochanter. A 2nd cut was made along the femoral neck at the base of the head and a napkin ring of neck was removed. Corkscrew was placed in the femoral head and the head was removed without difficulty. Retractors were then repositioned around the acetabulum. Residual labrum was resected and additional osteophytes were removed. A reamer that was 4 mm below the templated size was placed by hand in the acetabulum and it was reamed to centralize the acetabulum. It was then reamed up to 2 under the templated size and fluoroscopy was brought in to confirm the position of the reaming and depth of reaming. I reamed 1 under the anticipated size. A trial cup was placed and noted that it was appropriately sized and fluoroscopy confirmed position and depth. The component was open and inserted without difficulty fluoroscopic imaging was used to confirm that the cup had been adequately seated and was well positioned. It was further stabilized with 2 screws. Neutral poly liner was placed. The cup was tested and noted to be stable. Attention was then directed to the femur. The femur was gently hyperextended additional capsular release was performed as needed in order to allow adequate visualization of the proximal femur with elevation of the femur. Patient was placed in a hyperextended slightly adducted position with maximum external rotation. Box osteotome was used to check for any residual neck as well as sclerotic bone along the trochanter. [place] pepper was placed in the femur. Additional broaching was performed. Canal finder was used to determine the alignment of the canal and position. Size 1 broach was placed. The canal was then appropriately broached up to the templated size as long as there was adequate stability of the broach and serial advancement of the broach without excessive impingement. Specific attention was directed at avoiding varus attempting to direct the distal aspect of the broach more anteriorly and avoiding excessive anteversion. Trial reduction showed acceptable range of motion, good stability, no posterior impingement, confucianism of leg length and appropriate lateral shuck. I also hyperflexed the hip and checked that there was no impingement anteriorly and there was good stability with flexion, adduction and internal rotation. Marcaine and Exparel were injected. The stem was placed without difficulty. Repeat trial reduction and x-ray showed acceptable overall position, length, and no evidence of the femoral fracture. Final head was placed. Wound was meticulously irrigated with normal saline. The hip was reduced and additional Exparel and Marcaine were injected. The capsule was closed with interrupted nonabsorbable sutures. The fascia of the tensor was closed with interrupted and running Vicryl. No drain was placed. Any tensor fascia bharti muscle that appeared to be contused or injured which was a minimal amount was carefully resected. Capsule around the tensor was injected with Exparel and Marcaine. The skin was closed with barbed stitches for the subcutaneous tissue and skin. We also used surgical glue. The wound was dressed sterilely. Brief Betadine soak was also used and was meticulously irrigated with normal saline. Patient was transferred to recovery room in satisfactory condition. Complications: none Post-operative Condition: stable Disposition: Acute Care Plan for aftercare: The patient will be maintained on a standard total hip replacement protocol with weight bearing as tolerated and anterior hip precautions. The patient will receive Aspirin and sequential compression devices for DVT prophylaxis. The patient will be discharged home when safe for the home environment.
--- NOTE | 2022-01-27 08:00 | DI.RAD.S_ITS ---
PROCEDURE: XR HIP W PEL IF DONE RT 2V INDICATIONS: prosthesis placement inner op TECHNIQUE: 2 view(s) of the hip acquired. COMPARISON: None. FINDINGS: Bones: Patient is status post right total hip arthroplasty, with hardware components in expected positions. The hip joint appears congruent. The visualized bony structures appear intact. Soft tissues: Overlying postoperative changes are noted. No suspicious soft tissue densities. IMPRESSION: Expected appearance status post right total hip arthroplasty. No immediate complicating hardware feature identified. Dictated by: Raúl Ramey M.D. on 01/27/2022 at 13:16 Approved by: Raúl Ramey M.D. on 01/27/2022 at 13:17
[2022-01-27] MEDS: TRANEXAMIC ACID 1,000 MG VIAL 1000 MG INJ ×2 (08:15→10:28)
[2022-01-27] MEDS: CEFAZOLIN 2 GM/20 ML SYRINGE IV ×2 (08:25→16:57)
--- NOTE | 2022-01-27 09:02 | SUR.OPER ---
Patient supine on padded [place] table, one arm on padded arm board at <90, other arm padded with gel and secured with tape across patient's chest, both legs secured in padded traction boots applied by surgeon and PA and positioned per surgeon, padded post at patient's groin, pressure points checked and padded. Positioning directed and approved by Surgeon Barry
[2022-01-27] MEDS: BUPIVACAINE 0.25% (PF) 60 ML, EPINEPHrine 0.3 MG INJ (09:07)
[2022-01-27] MEDS: BUPIVACAINE LIPOSOME 266 MG/20 ML VIAL INJ (09:08)
--- NOTE | 2022-01-27 11:30 | DI.RAD.S_ITS ---
PROCEDURE: XR HIP W PEL IF DONE RT 2V INDICATIONS: POST OP RIGHT TOTAL HIP TECHNIQUE: AP pelvis and lateral view of the right hip acquired. COMPARISON: None. FINDINGS: Bones: Patient is status post bilateral hip arthroplasties, with hardware components in expected positions. The hip joint appears congruent. The visualized bony structures appear intact. Soft tissues: Overlying postoperative changes are noted. No suspicious soft tissue densities. IMPRESSION: Expected postsurgical change for right hip arthroplasty. Dictated by: Masha Rocha MD, PhD on 01/27/2022 at 16:40 Approved by: Masha Rocha MD, PhD on 01/27/2022 at 16:41
--- NOTE | 2022-01-27 12:34 | PC.NURSE ---
Patient admitted to room 214 at 1200. She is alert and oriented x3, and awake. Denies pain to her r.anterior hip and dressing is cdi with aquacel present. She had a spinal and bilateral pulses are + and cms wnl. LR at 125cc/hr infusing. Patient may be able to go home after she works with physical therapy later.
[2022-01-27] MEDS: IBUPROFEN 400 MG TABLET PO (12:48)
[2022-01-27] MEDS: ACETAMINOPHEN 325 MG TABLET 650 MG PO (12:48)
[2022-01-27] MEDS: LACTATED RINGERS 1,000 ML 125 ML IV (12:48)
--- NOTE | 2022-01-27 14:35 | PC.NURSE ---
Pt up with P.T. but became nauseated, vomited and felt woozy. Pt denies pain or nausea at this time but states she is very tired. PT cannot clear Pt for discharge so discharge was cancelled. Mariaa HANNON was contacted and agreed to hold the d/c for tomorrow.
--- NOTE | 2022-01-27 16:15 | PT.IIE ---
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) Hx of bilateral cataract extraction Hx of hernia repair Hx of right breast biopsy Hx of tonsillectomy Medical History (Last Reviewed 01/27/22 @ 06:57 by Sharon Walton RN) HLD (hyperlipidemia) Osteoarthritis Skin cancer of nose Physical Therapy Inpatient Evaluation/Re-Eval M1 PT/OT-IP Prior Functional Status Start: 01/27/22 14:26 Freq: NEEDED Status: Active Protocol: Document 01/27/22 14:27 AMB (Rec: 01/27/22 14:32 AMB [id number]) Medical Review Prior Functional Status Medical History Reviewed Yes Mobility and Gait Ambulating in community Social History Household Members none Living Arrangements House Number of Stairs To Enter/Railing? 2 DANIELLA with partial railing Home Environment Tub/Shower Home Equipment Front Wheel Walker Additional Social History Comment niece is picking her up, son is flying in from [place] to help care for her M2 PT-IP Current Condition Start: 01/27/22 14:26 Freq: NEEDED Status: Active Protocol: Document 01/27/22 14:27 AMB (Rec: 01/27/22 14:32 AMB [id number]) Physical Therapy Current Condition Current Condition Evaluation Date 01/27/22 Treatment Diagnosis R TERRELL-anterior Onset Date 01/27/22 M3 PT-IP Subjective Start: 01/27/22 14:26 Freq: NEEDED Status: Active Protocol: Document 01/27/22 14:27 AMB (Rec: 01/27/22 14:32 AMB [id number]) Subjective Physical Therapy Visit Type Type Initial Evaluation Visit Start Time 13:30 Visit Stop Time 14:30 Total Visit Minutes 60 Physical Therapy Visit Comments Patient Comments Pt would like to go home Therapy Pain Assessment Pain Present Pain Present Denied Pain M4 PT-IP Mobility and Gait Start: 01/27/22 14:26 Freq: NEEDED Status: Active Protocol: Document 01/27/22 15:46 AMB (Rec: 01/27/22 16:09 AMB [id number]) PT-Bed Mobility Assessment Rolling Type of Rolling Roll to Left Level of Assist Minimal Assistance,1 Person Assistance Supine to Sit Supine to Sit Minimal Assistance,1 Person Assistance,Head of Bed Elevated Sit to Supine Sit to Supine Minimal Assistance,1 Person Assistance,Head of Bed Elevated Scooting Scooting to Edge of Bed Minimal Assistance Scooting Up and Down in Bed Minimal Assistance PT-Transfer Assessment Sit to and From Stand Sit to and from Stand Standby Assistance Equipment Transfer Assistive Device Bed Rail,Gait Belt,Front Wheeled Walker Transfers Transfer Destination Bed Transfer Technique Stand Step Pivot Transfer Ability Level of Assist Contact Guard Assistance Comments Mobility Comments Pt has just eaten a little bit of lunch and reports nausea, but still wants to work with PT as she is hopeful to go home. BP 135/78 HR 97 HOB elevated. As discussing pt's history with pt she does vomit small amount of lunch into provided blue bag. Feels better afterwards, assisted pt to sit EOB with Thuy for R LE management. BP 158/89 HR 112 . Pt again vomits, given small amount of water, feels better. Gait Assessment Gait Gait Assistance Required: Moderate Assistance Distance (Feet) 10 Assistive Devices Assistive Device Gait Belt,Front Wheeled Walker Gait Deviations General Gait Pattern Antalgic,Decreased Stride Length,Decreased Feet Clearance,Narrow Based Gait Factors Limiting Gait Function Factors Limiting Gait Function Decreased Strength,Poor Safety Awareness Comments Gait Comments Pt ambulated 10' to sink, cues for FWW management, mostly CGA, but Thuy for FWW management, then ModA to avoid one LOB posterior while standing at sink and brushing teeth. Pt again vomited small amount of lunch. Ambulated 10' to hallway CGA again vomited, and PT decided to end treatment as pt was feeling weak and had already vomited x 4. Thuy to ambulate to bed due to fatigue/weakness. Pt reported being very tired when getting into bed. BP 140/76 HR 98. RN came into room due to occluded IV and witnessed pt fall asleep (SpO2 was 100). Woke pt again to make sure she was alright as sleep was very abrupt. Pt again stated she was fine, just tired, so allowed pt to sleep. PT-Balance Assessment Sitting Balance and Reactions Static Sitting Balance Ability Normal Dynamic Sitting Balance Ability Good Standing Balance and Reactions Static Standing Balance Ability Fair Dynamic Standing Balance Ability Fair M5 PT-IP Objective Assessments Start: 01/27/22 14:26 Freq: NEEDED Status: Active Protocol: Document 01/27/22 15:46 AMB (Rec: 01/27/22 16:09 AMB [id number]) Gross Range of Motion Lower Extremity ROM Assessment Right Impaired Strength Lower Extremity Strength Assessment Right Impaired Hip 2 Knee 4 Ankle 5 M6 PT-IP Treatment Start: 01/27/22 14:26 Freq: NEEDED Status: Active Protocol: Document 01/27/22 15:46 AMB (Rec: 01/27/22 16:09 AMB [id number]) Physical Therapy Treatment Education Education Provided Precautions,Weight Bearing Status,Safety M7 PT-IP Assessment and Plan Start: 01/27/22 14:26 Freq: NEEDED Status: Active Protocol: Document 01/27/22 15:46 AMB (Rec: 01/27/22 16:09 AMB [id number]) PT Summary Assessment and Plan Potential Rehabilitation Potential Good Status of Condition at Evaluation Evolving Summary Impairments ROM,Strength,Balance,Bed Mobility,Transfers,Gait, Activity Tolerance Assessment Summary Deyanira was hopeful to go home , but became nauseated and vomited multiple times when transferring and working on gait. She became weak while trying to walk in the hallway and we needed to have her lie down and rest before trying stair training. She did have one mild LOB posterior that required ModA. She was not instructed in exercises as she became quite tired and fell asleep before we were able to work on that. She does have a FWW, but it is quite tall for her, she reports she has a better one at home. She will need to be cleared on stairs before she can d/c home with the help of her son and niece. Goals Bed Mobility Goal Standby Assistance Transfer Goal Standby Assistance Gait Goal Standby Assistance Gait Distance 50 Other Goals Stairs: 3 steps ascend and descend with step to gait pattern, CGA 1 rail. Days to Meet Goals 3 Frequency of Treatment Frequency Of Treatment Twice a Day Treatment Plan Physical Therapy Treatment Plan Bed Mobility Training,Transfer Training,Gait Training, Therapeutic Exercise,Post Op Education,Neuromuscular Re-ed Other Recommendations and Next Treatment Post-op exercises, stairs Focus Precautions Anterior Hip Precautions No Hip Extension,No Hip External Rotation Weight Bearing Status Weight Bearing Status Weight Bear as Tolerated Recommendations To Nursing Amount of Assist Needed 1 Person Assist Discharge Recommendations PT Discharge Recommendations Home with 08/03 Assist Available Transportation Needs at Discharge Private Vehicle
[2022-01-27] MEDS: ATORVASTATIN 20 MG TABLET 10 MG PO (21:27)
[2022-01-27] MEDS: SODIUM CHLORIDE 0.9% FLUSH 10 ML IV (21:27)
[2022-01-27] MEDS: ASPIRIN EC 81 MG TABLET PO (21:27)
[2022-01-27] MEDS: BRIMONIDINE 0.2% OPHTH 5 ML 1 DROPS EYE-BOTH (21:27)
[2022-01-28 00:55] VITALS: BP 112/53; PULSE 76; RESP 19; TEMP 36.4; O2SAT 98
[2022-01-28] MEDS: ACETAMINOPHEN 325 MG TABLET 650 MG PO ×2 (00:57→06:12)
[2022-01-28] MEDS: CEFAZOLIN 2 GM/20 ML SYRINGE IV (00:57)
[2022-01-28] MEDS: IBUPROFEN 400 MG TABLET PO ×2 (00:59→06:12)
[2022-01-28 05:41] LABS: Hematocrit 26.6 % (36-46); Hemoglobin 9.1 g/dL (12.0-16.0)
[2022-01-28 06:27] VITALS: BP 125/61; PULSE 81; RESP 19; TEMP 36.6; O2SAT 99
--- NOTE | 2022-01-28 08:12 | P.DS_ITS ---
History of Present Illness History of Present Illness Date Patient Seen: 01/28/22 Time Patient Seen: 08:12 Chief complaint: hip pain Narrative: Hip pain is mild. No nausea or vomiting. Denies fever or chills. Discharge Providers Provider Discharge Date: 01/28/22 Primary care physician: Shannan Lyn MD Consults: 01/27/22 06:00 Consult to Anesthesiology Routine Comment: Consulting Provider: Anesthesiologist Reason for consultation: Regional block for post operative pain control 01/27/22 12:12 Consult to Discharge Planning Routine Comment: Consult to Physical Therapy Evaluate & Treat Comment: Physician Instructions: post op TERRELL protocol Consult to Respiratory Therapy Evaluate & Treat Comment: Physician Instructions: Evaluate and treat Discharge provider: Adama Xavier PA-C Summary Hospital Course Discharge Diagnosis: Left hip OA Hospital Course: Left total hip arthroplasty anterior approach Same procedure as scheduled: Yes Indications: The patient has had progressively worsening left hip pain with radiographic changes consistent with arthritis. Non-operative management has failed and the patient has requested total hip replacement. The risks, benefits and alternatives to surgery were discussed with the patient prior to proceeding. Risks discussed included, but were not limited to, failure to relieve pain, leg length discrepancy, dislocation, stiffness, infection, nerve damage, deep venous thrombosis, pulmonary embolism, stroke, coma, heart attack, permanent paralysis and , as well as the potential need for eventual revision of the prosthetic. Surgeon: Norma Barry Business Law Professor: Mariaa Meyer Anesthesia Type: Spinal and Sedation Operative Notes Closure Type: primary Specimen(s): none sent Prosthetic devices, grafts, tissues, transplants, or devices: Barry and nephew standard anthology size 5, 48 mm R3 cup, neutral 32 poly liner, 32 x -3 Oxinium femoral head,two 6.5 mm screws Estimated Blood Loss (mL): 250 Blood products transfused: none DC home today in stable condition. Status at Discharge Cognitive/behavioral status at discharge: at baseline, oriented Functional status at discharge: uses cane/walker Overall status at discharge: patient is progressing back to baseline Time Spent with Patient Time spent: Less than 30 minutes Exam Vital Signs (past 8 hours): - 01/28/22 00:55 01/28/22 06:27 Temperature 97.5 F L 97.8 F Pulse Rate 76 81 Respiratory Rate 19 19 Blood Pressure 112/53 L 125/61 Pulse Oximetry 98 99 Oxygen Flow Rate 0 0 Oxygen Delivery Method Room Air Oxygen Flow Rate 0 Narrative Exam Narrative: NAD, dressing CDI. Const General: cooperative and comfortable Nutritional Appearance: average body habitus HENMT Head: normal to inspection Resp Effort & Inspection: normal respiratory effort and able to speak in complete sentences Neuro General: patient alert and patient oriented x3 Extrem General: normal to inspection, capillary refill normal (bilat. LE), no pedal edema and other (Motor function intact bilat. 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 Discharge Plan Discharge Plan Patient Disposition: Home Discharge orders & Medications Discharge Orders: Discharge (Order); Ordered 01/28/22 Ordered By: Adama Xavier Prescriptions: New aspirin 81 mg Tablet,Delayed Release (Dr/Ec) 81 mg PO BID 42 Days Qty: 84 0RF Rx Instructions: Prevent blood clots acetaminophen 500 mg capsule 500 mg PO Q4H MDD Max 3000 mg per day Qty: 90 0RF docusate sodium 100 mg Capsule 100 mg PO BID PRN (Reason: Constipation from narcotic pain meds) Qty: 20 0RF ibuprofen 400 mg Tablet 400 mg PO Q6HR MDD Max 2400 mg per day PRN (Reason: Pain/inflammation) Qty: 90 0RF tramadol 50 mg tablet 50 mg PO Q6H PRN (Reason: pain) Qty: 20 0RF Continued multivitamin Capsule 1 cap PO DAILY Qty: 0 cholecalciferol (vitamin D3) [Vitamin D3] 2,000 unit Capsule 2,000 unit PO DAILY Qty: 0 atorvastatin 10 mg Tablet 10 mg PO BEDTIME brimonidine-timolol [Combigan] 0.2-0.5 % Drops 1 drp EYE-BOTH BEDTIME Discontinued ibuprofen 200 mg Capsule 400 - 600 mg PO DAILY PRN (Reason: Pain) acetaminophen 325 mg Tablet 975 mg PO TID Qty: 40 0RF aspirin 81 mg Tablet,Delayed Release (Dr/Ec) 81 mg PO BID Qty: 40 0RF Follow up/Referrals: Norma Barry MD [Physician] - (10-14 days for postop visit) Shannan Lyn MD [Primary Care Provider] - Diet/Activity/Treatments Diet: Diet as Tolerated Other treatments: Medications: -Aspirin 81mg twice daily x6 weeks to prevent blood clots. -OTC Tylenol 500 mg 1 tablet every 4 hours as needed for pain/fever. Max 6 tablets per day. -Ibuprofen 400 mg 1 tablet every 4 hours as needed for pain/inflammation. Max 2,400 mg per day. -Tramadol 50 mg take 1-2 tablets every 4 hours as needed for moderate-severe pain (narcotic pain medication). -As needed medications: -Ducolax and /or MiraLax as needed for constipation from narcotic pain medications. -Pepcid AC as needed for stomach upset (usually from aspirin or ibuprofen). Dressing/Wound care: -Keep Aquacell dressing in place until postoperative follow-up office visit. -Okay to shower. Keep wound out of direct water stream. No soaking or submerging until all the scabs fall off (approximately 6 weeks). -No lotions, ointments, or scar creams directly to the incision until the wound is healed (4-6 weeks), -Please call the office if dressing becomes wet, soiled, or saturated. Activities: -Maintain anterior hip precautions x6 weeks. -Weight-bearing as tolerated. Use front wheeled walker, and progress to cane when safe. -Continue with home exercises as directed by your physical therapist. -Elevate ?toes above the nose if you have significant swelling in your lower leg. (A wedge pillow is easiest.) -Ice your incision as needed for pain/inflammation/swelling. Protect your skin with a folded pillowcase. Follow-up: -Follow-up with your surgeon or PA in the office in 10-14 days after surgery. -Follow-up with your surgeon 6 weeks postoperatively. Call the office if you have chest pain, shortness of breath, significant swell ing that will not resolve with elevating, fever over 101?, significantly worsening pain. [facility]: [phone] Skin/Wound/Dressing Care Report to your healthcare provider any signs of infection, such as:: chills, fever, night sweats, unusual drainage and unusual redness Visit Report/Discharge Packet Instructions: DI for Hip Replacement Stand Alone Forms: Surgery Discharge Discharge Data Primary Care Provider: Shannan Lyn Attending Provider: Norma Barry
[2022-01-28 08:20] VITALS: BP 107/57; PULSE 75; RESP 18; TEMP 36.9; O2SAT 97
[2022-01-28] MEDS: MULTIVITAMIN 1 TABLET 1 TAB PO (08:21)
[2022-01-28] MEDS: CHOLECALCIFEROL (VITAMIN D3) 1,000 UNIT TABLET 2000 UNIT PO (08:21)
[2022-01-28] MEDS: DOCUSATE 100 MG CAPSULE PO (08:21)
[2022-01-28] MEDS: ASPIRIN EC 81 MG TABLET PO (08:22)
--- NOTE | 2022-01-28 08:27 | P.DS_ITS ---
History of Present Illness History of Present Illness Date Patient Seen: 01/28/22 Time Patient Seen: 08:27 Chief complaint: hip pain Narrative: Patient is complaining of mild right hip pain this morning. Her pain is well managed with ibuprofen and Tylenol. Her nausea and vomiting from yesterday has resolved. Overall she is feeling good and would like to be discharged home. Her son is available to help her at home. Discharge Providers Provider Discharge Date: 01/28/22 Primary care physician: Shannan Lyn MD Consults: 01/27/22 06:00 Consult to Anesthesiology Routine Comment: Consulting Provider: Anesthesiologist Reason for consultation: Regional block for post operative pain control 01/27/22 12:12 Consult to Discharge Planning Routine Comment: Consult to Physical Therapy Evaluate & Treat Comment: Physician Instructions: post op TERRELL protocol Consult to Respiratory Therapy Evaluate & Treat Comment: Physician Instructions: Evaluate and treat Discharge provider: Mariaa Meyer PA-C Summary Hospital Course Discharge Diagnosis: Left hip osteoarthritis Hospital Course: Operative Date/Time/Diagnoses Date of procedure: 01/27/22 Time of procedure: 07:55 Procedure & Clinicians Procedure: Left total hip arthroplasty anterior approach Same procedure as scheduled: Yes Indications: The patient has had progressively worsening left hip pain with radiographic changes consistent with arthritis. Non-operative management has failed and the patient has requested total hip replacement. The risks, benefits and alt ernatives to surgery were discussed with the patient prior to proceeding. Risks discussed included, but were not limited to, failure to relieve pain, leg length discrepancy, dislocation, stiffness, infection, nerve damage, deep venous thrombosis, pulmonary embolism, stroke, coma, heart attack, permanent paralysis and , as well as the potential need for eventual revision of the prosthetic. Surgeon: Norma Barry Orchard Manager: Mariaa Meyer Anesthesia Type: Spinal and Sedation Operative Notes Closure Type: primary Specimen(s): none sent Prosthetic devices, grafts, tissues, transplants, or devices: Barry and nephew standard anthology size 5, 48 mm R3 cup, neutral 32 poly liner, 32 x -3 Oxinium femoral head,two 6.5 mm screws Estimated Blood Loss (mL): 250 Blood products transfused: none Status at Discharge Cognitive/behavioral status at discharge: at baseline, oriented Functional status at discharge: uses cane/walker Overall status at discharge: patient is progressing back to baseline Exam Vital Signs (past 8 hours): - 01/28/22 00:55 01/28/22 06:27 01/28/22 08:20 Temperature 97.5 F L 97.8 F 98.5 F Pulse Rate 76 81 75 Respiratory Rate 19 19 18 Blood Pressure 112/53 L 125/61 107/57 L Pulse Oximetry 98 99 97 Oxygen Flow Rate 0 0 0 Oxygen Delivery Method Room Air Oxygen Flow Rate 0 Narrative Exam Narrative: Very pleasant 81-year-old female, resting comfortably in bed, no acute distress. Dressing is clean, dry, intact. Bilateral lower extremity: Motor functions are grossly intact, sensation is grossly intact to light touch, calves are soft and nontender palpation. 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 Weightbearing as tolerated with front wheel walker -maintain anterior hip precautions x6 weeks -continue with multimodal pain management -aspirin 81 mg b.i.d. x6 weeks for DVT prophylaxis -DC home today once cleared by PT Discharge Plan Discharge Plan Patient Disposition: Home Discharge orders & Medications Discharge Orders: Discharge (Order); Ordered 01/28/22 Ordered By: Adama Xavier Prescriptions: New aspirin 81 mg Tablet,Delayed Release (Dr/Ec) 81 mg PO BID 42 Days Qty: 84 0RF Rx Instructions: Prevent blood clots acetaminophen 500 mg capsule 500 mg PO Q4H MDD Max 3000 mg per day Qty: 90 0RF docusate sodium 100 mg Capsule 100 mg PO BID PRN (Reason: Constipation from narcotic pain meds) Qty: 20 0RF ibuprofen 400 mg Tablet 400 mg PO Q6HR MDD Max 2400 mg per day PRN (Reason: Pain/inflammation) Qty: 90 0RF tramadol 50 mg tablet 50 mg PO Q6H PRN (Reason: pain) Qty: 20 0RF Continued multivitamin Capsule 1 cap PO DAILY Qty: 0 cholecalciferol (vitamin D3) [Vitamin D3] 2,000 unit Capsule 2,000 unit PO DAILY Qty: 0 atorvastatin 10 mg Tablet 10 mg PO BEDTIME brimonidine-timolol [Combigan] 0.2-0.5 % Drops 1 drp EYE-BOTH BEDTIME Discontinued ibuprofen 200 mg Capsule 400 - 600 mg PO DAILY PRN (Reason: Pain) acetaminophen 325 mg Tablet 975 mg PO TID Qty: 40 0RF aspirin 81 mg Tablet,Delayed Release (Dr/Ec) 81 mg PO BID Qty: 40 0RF Follow up/Referrals: Norma Barry MD [Physician] - (10-14 days for postop visit) Shannan Lyn MD [Primary Care Provider] - Diet/Activity/Treatments Diet: Diet as Tolerated Other treatments: Medications: -Aspirin 81mg twice daily x6 weeks to prevent blood clots. -OTC Tylenol 500 mg 1 tablet every 4 hours as needed for pain/fever. Max 6 tablets per day. -Ibuprofen 400 mg 1 tablet every 4 hours as needed for pain/inflammation. Max 2,400 mg per day. -Tramadol 50 mg take 1-2 tablets every 4 hours as needed for moderate-severe pain (narcotic pain medication). -As needed medications: -Ducolax and /or MiraLax as needed for constipation from narcotic pain medications. -Pepcid AC as needed for stomach upset (usually from aspirin or ibuprofen). Dressing/Wound care: -Keep Aquacell dressing in place until postoperative follow-up office visit. -Okay to shower. Keep wound out of direct water stream. No soaking or submerging until all the scabs fall off (approximately 6 weeks). -No lotions, ointments, or scar creams directly to the incision until the wound is healed (4-6 weeks), -Please call the office if dressing becomes wet, soiled, or saturated. Activities: -Maintain anterior hip precautions x6 weeks. -Weight-bearing as tolerated. Use front wheeled walker, and progress to cane when safe. -Continue with home exercises as directed by your physical therapist. -Elevate ?toes above the nose if you have significant swelling in your lower leg. (A wedge pillow is easiest.) -Ice your incision as needed for pain/inflammation/swelling. Protect your skin with a folded pillowcase. Follow-up: -Follow-up with your surgeon or PA in the office in 10-14 days after surgery. -Follow-up with your surgeon 6 weeks postoperatively. Call the office if you have chest pain, shortness of breath, significant swelling that will not resolve with elevating, fever over 101?, significantly worsening pain. [facility]: [phone] Skin/Wound/Dressing Care Report to your healthcare provider any signs of infection, such as:: chills, fever, night sweats, unusual drainage and unusual redness Visit Report/Discharge Packet Instructions: DI for Hip Replacement Stand Alone Forms: Surgery Discharge Discharge Data Primary Care Provider: Shannan Lyn Attending Provider: Norma Barry
[2022-01-28] MEDS: SODIUM CHLORIDE 0.9% FLUSH 10 ML IV (08:28)
--- NOTE | 2022-01-28 09:30 | PT.IPTN ---
Current Diagnoses Unilateral primary osteoarthritis, left hip (01/27/22) Pain in left hip (01/27/22) Surgery Performed Operation Date: 01/27/22 07:45 Actual Procedures p Total Hip Arthroplasty/Anterior(Right) - Norma Barry MD Physical Therapy Treatment Note M2 PT-IP Current Condition Start: 01/27/22 14:26 Freq: NEEDED Status: Discharge Protocol: Document 01/27/22 14:27 AMB (Rec: 01/27/22 14:32 AMB [id number]) Physical Therapy Current Condition Current Condition Evaluation Date 01/27/22 Treatment Diagnosis R TERRELL-anterior Onset Date 01/27/22 M3 PT-IP Subjective Start: 01/27/22 14:26 Freq: NEEDED Status: Discharge Protocol: Document 01/28/22 09:30 AB (Rec: 01/28/22 13:41 AB [id number]) Subjective Physical Therapy Visit Type Type Treatment Note Visit Start Time 09:30 Visit Stop Time 10:30 Total Visit Minutes 60 Number of RESEARCH AND EVALUATION MANAGER Visits 0 Physical Therapy Visit Comments Patient Comments agreeable to do PT Therapy Pain Assessment Pain Present Pain Present Denied Pain M4 PT-IP Mobility and Gait Start: 01/27/22 14:26 Freq: NEEDED Status: Discharge Protocol: Document 01/28/22 09:30 AB (Rec: 01/28/22 13:41 AB [id number]) PT-Bed Mobility Assessment Supine to Sit Supine to Sit Standby Assistance PT-Transfer Assessment Sit to and From Stand Sit to and from Stand Contact Guard Assistance,1 Person Assistance,Use of Upper Extremities Equipment Transfer Assistive Device Gait Belt,Front Wheeled Walker Orthotic/Prosthetic Devices or Brace: No Transfers Transfer Destination Chair Transfer Technique ambulated Transfer Ability Level of Assist Contact Guard Assistance,1 Person Assistance,Use of Upper Extremities Comments Mobility Comments educated pt on anterior hip precautions and pt able to recall. completed supine to sit SBA. able to sit on EOB SBA. Son arrived in pt's room . pt completed sit to stand CGA and ambulated in room ~ 10ft using fWW CGA and sat on chair. caregiver training conducted. educated on on how to use safety belt and how to assist pt. son was able to put safety belt on pt and assisted pt with sit to stand and ambulated out in the hallway ~ 30 ft using fWW CGA. educated pt and son regarding stair climbing. initially PT cueing and assisting pt with up/down platform step min A using FWW. pt repeated and with son assisting and completed safely. Son is able to assist and cue pt safely. pt ambulated back to her room using FWW with son assisting CGA. pt sat on chair. NAC arrived to assist pt with getting ready for d/c. informed son regarding pt's equipement needs: plastic caps /tennis balls for posterior legs of FWW and tub transfer bench. son and pt without any other concerns. Gait Assessment Gait Gait Assistance Required: Contact Guard Assist Distance (Feet) 30 Able to Maintain Weight Bearing Status Yes During Gait Assistive Devices Assistive Device Gait Belt,Front Wheeled Walker Orthotic/Prosthetic Devices or Brace: No Gait Deviations General Gait Pattern Decreased Stride Length, Decreased Feet Clearance Factors Limiting Gait Function Factors Limiting Gait Function Decreased Activity Tolerance, Decreased Strength,Difficulty Following Directions,Poor Balance,Poor Safety Awareness Stair Climbing Assessment Evaluation Level of Assist On Stairs Minimal Assistance Devices Stair Climbing Assistive Devices Front Wheel Walker Technique/Endurance Stair Climbing Direction Ascend and Descend Stair Climbing Technique Step to Step Number of Steps Climbed 1 Stair Climbing Set # Repetitions (reps) 2 PT-Balance Assessment Sitting Balance and Reactions Static Sitting Balance Ability Normal Dynamic Sitting Balance Ability Good Standing Balance and Reactions Static Standing Balance Ability Fair Dynamic Standing Balance Ability Fair Device Used FWW M5 PT-IP Objective Assessments Start: 01/27/22 14:26 Freq: NEEDED Status: Discharge Protocol: Document 01/27/22 15:46 AMB (Rec: 01/27/22 16:09 AMB [id number]) Gross Range of Motion Lower Extremity ROM Assessment Right Impaired Strength Lower Extremity Strength Assessment Right Impaired Hip 2 Knee 4 Ankle 5 M6 PT-IP Treatment Start: 01/27/22 14:26 Freq: NEEDED Status: Discharge Protocol: Document 01/28/22 09:30 AB (Rec: 01/28/22 13:41 AB [id number]) Physical Therapy Treatment Education Education Provided Precautions,Weight Bearing Status,Post-Op Packet,Safety M7 PT-IP Assessment and Plan Start: 01/27/22 14:26 Freq: NEEDED Status: Discharge Protocol: Document 01/28/22 09:30 AB (Rec: 01/28/22 13:41 AB [id number]) PT Summary Assessment and Plan Potential Rehabilitation Potential Good Summary Impairments Pain,ROM,Strength,Balance, Coordination,Sensation,Tone, Cognition,Bed Mobility, Transfers,Gait,Activity Tolerance Assessment Summary caregiver training conducted and son was able to assist pt safely. pt plans to go home today and may go home when medically stable. Goals Bed Mobility Goal Standby Assistance Transfer Goal Standby Assistance,Front Wheeled Walker Gait Goal Standby Assistance,Front Wheel Walker Gait Distance 50 Other Goals 1 step using FWW SBA Days to Meet Goals 3 Frequency of Treatment Frequency Of Treatment Twice a Day Treatment Plan Physical Therapy Treatment Plan Bed Mobility Training,Transfer Training,Gait Training, Therapeutic Exercise,Post Op Education,Neuromuscular Re-ed Other Recommendations and Next Treatment Post-op exercises, stairs Focus Precautions Anterior Hip Precautions No Hip Extension,No Hip External Rotation Weight Bearing Status Weight Bearing Status Weight Bear as Tolerated Recommendations To Nursing Amount of Assist Needed 1 Person Assist Discharge Recommendations PT Discharge Recommendations Home with 08/03 Assist Available,Outpatient PT Transportation Needs at Discharge Private Vehicle
--- NOTE | 2022-01-28 11:04 | PC.NURSE ---
Day shift: Paperwork signed and all questions answered. Pt has all personal belongings. Taken to car via at approx 1110. Dressing remains CDI. Pt steady on feet and fallowing hip precautions. CMS intact. Taken to car, her Son is driving, by [facility].
--- NOTE | 2022-01-28 11:18 | CM.DANOTE ---
Addendum entered by ARYAN Olson 01/28/22 11:51: ADD: PT cleared pt for safe d/c home with family and pt discharged via POV with outpt f/u with Ortho and no further SW needs at this time. BF Original Note: Patient is a 81 yo female who was admitted on 01/27/22 for Left Hip Pain. Pt has [employer] for insurance and her PCP is Shannan Lyn. EMR was reviewed. Per Ortho PA, pt tolerated LTHA surgery well and likely stable for d/c home today pending further PT. Per PT, recommending home with 24/7 assist and will attempt stairs and CG training today. SW met bedside with pt briefly and explained role and pt confirms she lives at home alone and is independent with ADL's at baseline and has local supportive family. Pt states she had hip surgery a couple years ago in 2019 and was able to safely d/c home at that time as well. Pt denies any hx of SNF and states her niece plans to provide transport home at d/c and son has flown in from [place] to stay with pt to provide additional assist. Pt does not anticipate any d/c needs and is hopeful to go home today. Plan: SW to follow closely for further PT today to confirm safe plan of home via family POV and son to stay and assist at discharge and any further identified needs. ARYAN Olson Discharge Planning/Care Management Advanced directive, confirm from FAMILY Start: 01/27/22 12:27 Freq: Q24H Status: Discharge Protocol: Document 01/27/22 12:27 CM (Rec: 01/27/22 12:28 CM [id number]) Advance Directive, confirm on record Time 12:27 Person contacted Pt Copy received Yes Advanced directive available on record Yes CM Discharge Assessment Start: 01/28/22 11:05 Freq: Status: Discharge Protocol: Document 01/28/22 11:05 BF (Rec: 01/28/22 11:06 BF [id number]) Discharge Planning Assessment Assigned Political Advisor ARYAN Nicole Advance Directives? Yes Advance Directives on File No History Provided By Patient,Medical Record Has Patient been admitted in last 30 No days? Prior Living Arrangements House Household Members none Type of transporation used prior to Drives own vehicle admit Independent with ADL's Yes Is patient alert and oriented? Yes Caregiver for Another No DME Already Rented / Owned FWW / Walker Patient/Family Preference OP PT Therapy Barriers to Discharge No Discharge Plan Home Community Services Physical Therapy Transportation Arrangement niece to provide transport home at discharge Referrals Initiated None needed Whiteboard Updated in Patient Room with Yes name and ext. # of Political Advisor Review Status In Process Please Provide Date Initial DC 01/28/22 Assessment Was Performed Next Review Type Continued Stay Review Pre-Anesthesia Assessment Start: 01/21/22 14:28 Freq: Status: Complete Protocol: Document 01/21/22 14:28 CAB (Rec: 01/21/22 14:37 CAB [id number]) Pre-Anesthesia Assessment PAC Comment Pt is s/p LT TERRELL 05/23/19. She declined scheduled PAC assessment. She reports no changes to her medical/ medication history and had no questions or concerns with upcoming surgery. Chart review only Patient Information Reviewed Via Chart Review Diagnostic Results BMP/CMP,CBC Comment Outside labs/ECG scanned, COVID screen @ 01/26/22 Primary Care Provider Shannan Lyn Seen Specialist in Last 12 Months Yes Specialist Seen Orthopedist Primary Language Yi Preferred Language Yi Height 149.86 cm Weight 48.081 kg Body Mass Index (BMI) 21.4 Hearing Ability Normal Visual Assist Glasses,Magnifying Glass Dentition Type Teeth, Natural Present Barriers to Learning None Hx Anesthesia Reactions No Hx Family Anesthesia Reaction No Hx Malignant Hyperthermia No Hx Blood Transfusions No Hx Blood Transfusion Reaction No Anesthesia Review Requested No Otolaryngology Surgeon No alcohol intake never Smoking Status Never smoker Substance Use Type does not use Pain Present Pain Reported Musculoskeletal Symptoms Abnormal Gait,Difficulty Walking,Joint Pain History of Falling (Recent or History of No ) Patient is completely paralyzed or No completely immobile Prosthesis or Orthotic Device Cane Mental Status Oriented to own ability Is patient on oxygen? No Does patient have PETTY/SOB No Hx Sleep Apnea No CPAP/BIPAP use not prescribed Currently Taking a Beta Shea No Can You Climb a Flight of Stairs Without Yes SOB Hx Chest Pain Yes Hx SOB No Hx Syncope or Dizziness No Has a Contracts Intern Yes: [facility] Cardiac Testing Yes Hx Pacemaker/ICD No Pacemaker Rep Required? No Diet Type At Home Regular dysphagia No Bladder Pattern Incontinent Urinary Catheter Present No Hx Urinary Self Catheterization No Diabetes No: Pre-diabetes by labs HgbA1C 6.1 Date 12/29/21 Patient No Lactating No Hx Drug Resistant Organism No Presence of External or Internal Medical No Devices Marital Status / Lives With none Prior Living Arrangements House Number of Floors (Floors) One Floor Support System Child/Children Patient Discharge Plan Description Return Home Feels Safe in Current Environment Yes Been Physically Hurt or Threatened By a No Person in Current Environment Do you have thoughts of harming yourself None or others? Are you currently considering suicide? No Do you have a plan to hurt yourself or No Plan others? Do You Have Any Spiritual Beliefs That No May Affect Your HC Choices? Do You Have Any Cultural Practices That No May Affect Your HC Choices? Who Can We Speak to About Patient's Care family, friends Identifying Code for Release of Patient Declines to issue Information Health Care Proxy/Next of Kin Zari (daughter) Health Care Proxy Emergency Contact Name Zari (daughter) Emergency Contact Advance Directives? Yes Advance Directives on File No Power of Unit Manager Rn Yes Power of Unit Manager Rn Name Zari Hopkins (daugher), Otto Mars (son) Power of Unit Manager Rn (Zari)
== END 2022-01-28 11:11 | disposition home or self-care (01) ==
LOC: OR 05:29 → AC 05:30
PROVIDERS: Family Provider Internal Medicine; PCP Internal Medicine; Referring Provider Orthopaedic Surgery; Visit Provider Orthopaedic Surgery
PROC: (CPT 27130; principal; 2022-01-27 07:45)
DX: M16.12 Unilateral primary osteoarthritis, left hip (principal)
CPT/HCPCS: 27130; 36415; 73502; 76000; 85014; 85018; 97162; 97530; C1776; C9290; J0171; J0690; J1170; J2250; J2704; J3010

== ENCOUNTER → 2022-03-20 14:42 | Outpatient (CLI) | payer MEDICARE, OTHER, SELFPAY ==
[2022-01-27 12:20] VITALS: BMI 21.4
== END ==
PROVIDERS: Family Provider Internal Medicine; PCP Internal Medicine; Referring Provider Internal Medicine; Visit Provider Internal Medicine
DX: Z13.820 Encounter for screening for osteoporosis; Z78.0 Asymptomatic menopausal state; M81.0 Age-related osteoporosis without current pathological fracture
CPT/HCPCS: 77080; 77081